=== PATIENT | female | born 1945 | race Caucasian/White ===

== ENCOUNTER → 2016-11-04 | Outpatient (CLI) | payer MEDICARE, OTHER | LOC: HEART CORB 08:30 | DX: R07.2 Precordial pain (principal) | CPT/HCPCS: 78452; A9502; J2785 ==

== ENCOUNTER → 2016-12-08 | Outpatient (CLI) | payer MEDICARE, OTHER ==
[~2016-12-08] VITALS: Ht 167.6 cm; Wt 67.6 kg
== END ==
LOC: OPSV 15:22
DX: N39.0 Urinary tract infection, site not specified (principal)
CPT/HCPCS: 96372; J0696

== ENCOUNTER → 2016-12-09 | Outpatient (CLI) | payer MEDICARE, OTHER ==
[~2016-12-09] VITALS: Ht 167.6 cm; Wt 67.6 kg
== END ==
LOC: OPSV 11:23
DX: N39.0 Urinary tract infection, site not specified (principal)
CPT/HCPCS: 96372; J0696

== ENCOUNTER → 2016-12-10 | Outpatient (CLI) | payer MEDICARE, OTHER ==
[~2016-12-10] VITALS: Ht 167.6 cm; Wt 67.6 kg
== END ==
LOC: OPSV 11:09
DX: N39.0 Urinary tract infection, site not specified (principal)
CPT/HCPCS: 96372; J0696

== ENCOUNTER → 2016-12-11 | Outpatient (CLI) | payer MEDICARE, OTHER ==
[~2016-12-11] VITALS: Ht 167.6 cm; Wt 67.6 kg
== END ==
LOC: OPSV 10:54
DX: N39.0 Urinary tract infection, site not specified (principal)
CPT/HCPCS: 96372; J0696

== ENCOUNTER → 2017-02-15 | Outpatient (CLI) | payer MEDICARE, OTHER | LOC: CT 01-05 09:00 | DX: I77.9 Disorder of arteries and arterioles, unspecified (principal); I65.23 Occlusion and stenosis of bilateral carotid arteries | CPT/HCPCS: 36415; 70496; 70498; 82565; 84520; J7050; Q9963 ==

== ENCOUNTER 2021-10-05 12:28 | Inpatient (IN) | payer MEDICARE, OTHER ==
[~2021-10-05] VITALS: Ht 165.1 cm; Wt 81.6 kg
[~2021-10-05 12:28] MED LIST: ADVAIR HFA 115-28 GM INH; ASPIRIN EC81 MG PO; CELEXA 20MG TAB20 MG PO; CILOSTAZOL50 MG PO; CLARITIN 10MG T10 MG PO; COMBIVENT RESPIM4 GM INH; CYANOCOBAL1000 MCG/1 INJ; ELIQUIS5 MG PO; FERROUS SULFAT325 MG PO; GABAPENTIN400 MG PO; LINZESS145 MCG PO; NORCO 10-325 T1 EACH PO; OMEPRAZOLE40 MG PO; PRAVACHOL20 MG PO; SYNTHROID75 MCG PO; VITAMIN D PO; ZOFRAN ODT 4 MG4 MG GT; ZYLOPRIM100 MG PO
[2021-10-05 13:00] LABS: HEMOGLOBIN 11.1 gm/dl (12.3-15.3); RED BLOOD COUNT 3.73 M/UL (4.00-5.10)
[2021-10-05 15:13] LABS: BUN/CREATININE RATIO 19 (0-10)
[2021-10-06] MEDS ORDERED: ROXICODONE TAB 55 MG PO (12:28)
[2021-10-06] MEDS ORDERED: BACTRIM DS TAB1 EACH PO (12:29)
[2021-10-06] MEDS ORDERED: ZYLOPRIM100 MG PO (12:29)
[2021-10-06] MEDS ORDERED: CYMBALTA 30 MG30 MG PO (12:30)
[2021-10-06] MEDS ORDERED: CILOSTAZOL50 MG PO (12:30)
[2021-10-06] MEDS ORDERED: CYANOCOBAL1000 MCG/1 INJ (12:34)
[2021-10-06] MEDS ORDERED: PRAVASTATIN SOD20 MG PO (12:35)
[2021-10-06] MEDS ORDERED: SPIRIVA HANDIH18 MCG INH (12:35)
[2021-10-06] MEDS ORDERED: NEURONTIN800 MG PO (12:36)
[2021-10-08 05:33] LABS: HEMOGLOBIN 10.1 gm/dl (12.3-15.3); RED BLOOD COUNT 3.45 M/UL (4.00-5.10); WHITE BLOOD COUNT 9.2 K/UL (4.5-11.0)
[2021-10-09 05:28] LABS: HEMOGLOBIN 9.4 gm/dl (12.3-15.3); RED BLOOD COUNT 3.23 M/UL (4.00-5.10)
[2021-10-09] MEDS ORDERED: ERTAPENEM1 GM IV (08:59)
--- NOTE | 2021-10-09 10:29 | NUR ---
MIDLINE INSERTED INTO RIGHT UPPER ARM. TOOK 2 ATTEMPTS. USED 20G 10 CM. REF [id number] LOT [id number] EXP 12/27/21. MIDLINE HAD POSITIVE BLOOD RETURN AND FLUSHED WITH EASE. PT TOLERATED WELL. SITE DRESSED WITH MIDLINE KIT AND SECURED.
== END 2021-10-09 15:08 | disposition home health service (06) | DRG 698 ==
LOC: ER1 12:28 → CCU 23:43 → CDU 23:43 → CCU 10-07 16:39 → PROG CARE 10-09 01:25
PROVIDERS: Emergency Medicine; Internal Medicine; Internal Medicine Infectious Disease; ADMIT Emergency Medicine
PROC: 8E0ZXY6 Isolation (ICD-10-PCS; principal; 2021-10-06)
PROC: 3E0333Z Introduction of Anti-inflammatory into Peripheral Vein, Percutaneous Approach (ICD-10-PCS; 2021-10-06)
PROC: XW033E5 Introduction of Remdesivir Anti-infective into Peripheral Vein, Percutaneous Approach, New Technology Group 5 (ICD-10-PCS; 2021-10-06)
DX: T83.593A Infection and inflammatory reaction due to other urinary stents, initial encounter (principal); A41.89 Other specified sepsis; U07.1 COVID-19; J12.82 Pneumonia due to coronavirus disease 2019; I21.A1 Myocardial infarction type 2; G92.8 Other toxic encephalopathy; A41.51 Sepsis due to Escherichia coli [E. coli]; R65.21 Severe sepsis with septic shock; N30.00 Acute cystitis without hematuria; J44.0 Chronic obstructive pulmonary disease with (acute) lower respiratory infection; N17.9 Acute kidney failure, unspecified; J44.1 Chronic obstructive pulmonary disease with (acute) exacerbation; E87.2 Acidosis; Z16.12 Extended spectrum beta lactamase (ESBL) resistance; D64.9 Anemia, unspecified; Z96.0 Presence of urogenital implants; I71.4 Abdominal aortic aneurysm, without rupture; I65.29 Occlusion and stenosis of unspecified carotid artery; R33.8 Other retention of urine; L89.152 Pressure ulcer of sacral region, stage 2; N18.30 Chronic kidney disease, stage 3 unspecified; Y84.6 Urinary catheterization as the cause of abnormal reaction of the patient, or of later complication, without mention of misadventure at the time of the procedure; Z86.73 Personal history of transient ischemic attack (TIA), and cerebral infarction without residual deficits; Z95.5 Presence of coronary angioplasty implant and graft; Z90.49 Acquired absence of other specified parts of digestive tract; Z90.710 Acquired absence of both cervix and uterus; Z98.890 Other specified postprocedural states; Z88.8 Allergy status to other drugs, medicaments and biological substances; Z82.49 Family history of ischemic heart disease and other diseases of the circulatory system; Z79.899 Other long term (current) drug therapy; I25.2 Old myocardial infarction
CPT/HCPCS: 0240U; 36415; 70450; 71045; 80048; 80053; 80202; 80307; 81001; 82140; 82550; 82553; 82728; 82800; 83605; 83735; 83874; 84100; 84132; 84484; 85025; 86140; 87040; 87077; 87086; 87186; 92610; 93005; 94640; 94664; 94760; 96372; 96374; 96375; 96376; 97162; 99285; C9113; G0480; J0248; J0456; J0696; J1100; J1335; J1650; J2060; J2543; J3370; J3486; J7030; J7070

== ENCOUNTER → 2021-12-30 | Outpatient (CLI) | payer MEDICARE, OTHER, MEDICAID ==
[~2021-12-30] MED LIST changes: +BACTRIM DS TAB1 EACH PO; +CYMBALTA 30 MG30 MG PO; +ERTAPENEM1 GM IV; +NEURONTIN800 MG PO; +PRAVASTATIN SOD20 MG PO; +ROXICODONE TAB 55 MG PO; +SPIRIVA HANDIH18 MCG INH
== END ==
LOC: RAD 11:04
DX: M25.571 Pain in right ankle and joints of right foot (principal)
CPT/HCPCS: 73610

== ENCOUNTER → 2022-04-13 | Outpatient (CLI) | payer MEDICARE, OTHER | LOC: CT 14:38 | DX: I77.1 Stricture of artery (principal); I70.0 Atherosclerosis of aorta | CPT/HCPCS: 71275; Q9967 ==